=== PATIENT | female | born 1935 | race Caucasian/White ===

== ENCOUNTER 2021-12-15 19:44 | Emergency (ER) | payer MEDICARE, BC ==
[~2021-12-15] VITALS: Ht 160 cm; Wt 62.6 kg
[2021-12-15 21:55] LABS: HEMATOCRIT 31.7 % (37.0-47.0); HEMOGLOBIN 10.4 gm/dL (12.0-15.0); MCH 28.6 pg (26.0-34.0); MCHC 32.7 g/dL (28.0-37.0); MCV 87.4 fL (80.0-100.0); MPV 5.9 fl. (7.2-11.1); RBC 3.62 mil/uL (4.20-5.00); RDW-CV 15.7 % (10.5-14.5); WBC 7.3 thou/uL (4.0-11.0)
[2021-12-15 22:04] LABS: CALCIUM 8.9 mg/dL (8.5-10.1); CREATININE 1.1 mg/dL (0.6-1.3); POTASSIUM 4.4 mmol/L (3.5-5.1)
[2021-12-15 22:10] LABS: ALBUMIN 3.6 g/dL (3.4-5.0); TOTAL BILIRUBIN 0.3 mg/dL (<0.1-1.0); TOTAL PROTEIN 6.7 g/dL (6.4-8.2)
[2021-12-15 23:50] VITALS: BP 167/79
== END 2021-12-15 23:50 | disposition home or self-care (01) ==
LOC: M.ERS 19:44
PROVIDERS: Personal Emergency Response Attendant
DX: T83.010A Breakdown (mechanical) of cystostomy catheter, initial encounter (principal); E87.1 Hypo-osmolality and hyponatremia; Z88.8 Allergy status to other drugs, medicaments and biological substances; Z88.5 Allergy status to narcotic agent; Z88.0 Allergy status to penicillin; Y84.8 Other medical procedures as the cause of abnormal reaction of the patient, or of later complication, without mention of misadventure at the time of the procedure; Y92.89 Other specified places as the place of occurrence of the external cause

== ENCOUNTER 2021-12-18 12:33 | Emergency (ER) | payer MEDICARE, BC ==
[~2021-12-18] VITALS: Ht 160 cm; Wt 62.6 kg
[2021-12-18] MEDS ORDERED: CILOSTAZOL50 MG PO (12:53)
[2021-12-18] MEDS ORDERED: CARVEDILOL6.25 M1 PO (12:53)
[2021-12-18] MEDS ORDERED: PROZAC20 M1 PO (12:54)
[2021-12-18] MEDS ORDERED: LISINOPRIL2.5 MG PO (12:54)
[2021-12-18] MEDS ORDERED: PROTONIX40 M3 PO (12:55)
[2021-12-18] MEDS ORDERED: METFORMIN HCL500 M3 PO (12:55)
[2021-12-18] MEDS ORDERED: NEURONTIN100 MG PO (12:56)
[2021-12-18] MEDS ORDERED: TRIAMTERENE-HC1 EAC1 PO (12:57)
[2021-12-18] MEDS ORDERED: CLARITIN10 M3 PO (12:57)
[2021-12-18] MEDS ORDERED: VALACYCLOVIR1000 MG PO (12:57)
[2021-12-18] MEDS ORDERED: VITAMIN D3-ALO1 EACH PO (12:58)
[2021-12-18] MEDS ORDERED: GLUCOSAMINE1000 MG PO (12:58)
[2021-12-18] MEDS ORDERED: ZINC50 M1 PO (12:59)
[2021-12-18 14:21] LABS: ABSOLUTE EOSINOPHILS 0.1 thou/uL (0.0-0.7); ABSOLUTE LYMPHOCYTES 1.5 thou/uL (0.8-5.3); ABSOLUTE MONOCYTES 0.5 thou/uL (0.0-1.2); BASOPHILS 0.3 %; EOSINOPHILS 1.6 %; HEMATOCRIT 33.1 % (37.0-47.0); HEMOGLOBIN 10.7 gm/dL (12.0-15.0); LYMPHOCYTES 24.5 %; MCH 28.2 pg (26.0-34.0); MCHC 32.4 g/dL (28.0-37.0); MCV 87.1 fL (80.0-100.0); MONOCYTES 7.6 %; NUCLEATED RBCS 0 /100WBC; PLATELET COUNT* 342 thou/uL (150-400); RBC 3.81 mil/uL (4.20-5.00); RDW-CV 15.8 % (10.5-14.5); WBC 6.1 thou/uL (4.0-11.0)
[2021-12-18 14:39] LABS: URINE BILIRUBIN NEGATIVE (Negative); URINE BLOOD 2+ (Negative); URINE CLARITY CLEAR; URINE COLOR YELLOW; URINE GLUCOSE-RANDOM NEGATIVE (Negative); URINE KETONES NEGATIVE (Negative); URINE LEUKOCYTES-REFLEX 3+ (Negative); URINE NITRITE-REFLEX POSITIVE (Negative); URINE PROTEIN 1+ (Negative); URINE SPECIFIC GRAVITY 1.015 (1.005-1.030); URINE UROBILINOGEN 0.2 E.U./dl (0.2-1.0)
[2021-12-18 14:44] LABS: SQUAMOUS 0-3 Few /LPF (0-3)
[2021-12-18 14:45] LABS: BACTERIA-REFLEX >30 Many /HPF (None Seen); CRYSTALS None Seen /LPF (None Seen); MUCUS 0-3 Light strn/LPF (None Seen); URINE WBC-REFLEX >25 Many /HPF (0-5)
[2021-12-18 14:46] LABS: CASTS None Seen /LPF (None Seen)
[2021-12-18 15:11] LABS: CALCIUM 9.7 mg/dL (8.5-10.1)
[2021-12-18 15:16] LABS: ALBUMIN 3.6 g/dL (3.4-5.0); TOTAL BILIRUBIN 0.2 mg/dL (<0.1-1.0); TOTAL PROTEIN 6.6 g/dL (6.4-8.2)
[2021-12-18] MEDS ORDERED: BACTRIM DS TAB1 EACH PO (15:44)
[2021-12-18 16:34] VITALS: BP 149/67
== END 2021-12-18 16:34 | disposition home or self-care (01) ==
LOC: M.ERS 12:33
PROVIDERS: Student in an Organized Health Care Education/Training Program
DX: A60.00 Herpesviral infection of urogenital system, unspecified (principal); N39.0 Urinary tract infection, site not specified; E87.1 Hypo-osmolality and hyponatremia; R33.9 Retention of urine, unspecified; Z90.49 Acquired absence of other specified parts of digestive tract; Z98.890 Other specified postprocedural states; Z79.899 Other long term (current) drug therapy; Z88.8 Allergy status to other drugs, medicaments and biological substances; Z88.5 Allergy status to narcotic agent; Z88.0 Allergy status to penicillin